=== PATIENT | female | born 1990 | race Two or more races ===

== ENCOUNTER → 2018-02-10 08:39 | Outpatient (CLI) | payer MEDICAID, SELFPAY ==
[2018-02-16 10:07] LABS: HPV Reflexed? NOT INDICATED
== END ==
PROVIDERS: Visit Provider Obstetrics & Gynecology
DX: Z12.4 Encounter for screening for malignant neoplasm of cervix (principal)
CPT/HCPCS: 88175; G0145

== ENCOUNTER → 2019-02-21 09:30 | Outpatient (CLI) | payer MEDICAID, SELFPAY ==
[2019-02-23 11:57] LABS: HPV Reflexed? NOT INDICATED
== END ==
PROVIDERS: Visit Provider Obstetrics & Gynecology
DX: Z12.4 Encounter for screening for malignant neoplasm of cervix (principal)
CPT/HCPCS: 88175; G0145